=== PATIENT | female | born 1995 | race Caucasian/White ===

== ENCOUNTER 2017-01-09 15:59 | Emergency (ER) | payer OTHER ==
--- NOTE | 2017-01-09 16:15 | PDOC ---
Rapid Medical Evaluation Time Seen by Provider: 01/09/17 16:12 Medical Evaluation: 01/09/17 16:12 Pt presents with complaint of : intermittent spotting x 1 month, no hx of fibroids,endometriosis, - preg 2 week sago, Hx PCOS On brief exam: VSS, I have ordered the following: upreg, ua, cbc, Pt will go to the Emergency Dept for further workup Discharge Disposition - Diagnosis Vaginal bleeding - Referrals - Patient Instructions - Post Discharge Activity
[2017-01-09 16:17] VITALS: BP 125/69; PULSE 66; TEMP 98; BMI 27.4
[2017-01-09 16:31] LABS: BASOPHIL 0.9 % (0-2.0); EOSINOPHIL 1.7 % (0-4.5); MCHC 33.4 g/dl (32.0-36.0); MEAN CELL VOLUME 86.9 fl (80-96); MEAN PLT VOLUME 7.9 fl (7.5-11.1); NEUTROPHILS 59.6 % (42.8-82.8); PLATELET COUNT 316 K/MM3 (134-434); RDW 12.9 % (11.6-15.6)
[2017-01-09 16:38] LABS: URINE APPEARANCE SLCLOUDY; URINE BILIRUBIN NEGATIVE (NEGATIVE); URINE BLOOD 1+ (NEGATIVE); URINE COLOR LTYELLOW; URINE GLUCOSE (UA) NEGATIVE (NEGATIVE); URINE KETONE NEGATIVE (NEGATIVE); URINE NITRITE NEGATIVE (NEGATIVE); URINE PROTEIN NEGATIVE (NEGATIVE); URINE UROBILINOGEN NEGATIVE mg/dL (0.2-1.0)
[2017-01-09 17:12] LABS: URINE MUCUS RARE; URINE RBC 11 /hpf (0-3); URINE WBC 2 /hpf (3-5)
--- NOTE | 2017-01-09 17:48 | PDOC ---
History of Present Illness - General Chief Complaint: Vaginal Bleeding Stated Complaint: VAGINAL BLEEDING Time Seen by Provider: 01/09/17 16:12 - History of Present Illness Initial Comments: 01/09/17 17:39 "The patient is a 21 year old female, with a significant past medical history of polycystic ovarian syndrome and irregular periods, who presents to the emergency department with 1 month of intermittent vaginal bleeding. Patient reports she has been going through 2 pads per day and describes her bleeding as spotting. Denies abdominal pain. Pt denies any dysuria, hematuria, frequency, or urgency. Patient reports she is sexually active with one partner and does not use protection. She denies any nausea, vomiting, diarrhea, or constipation. She denies any fever, cough, headache, or dizziness. The patient reports she was previously on control for PCOS, but stopped it in February due to prescription, and states her periods have been irregular since then. Patient reports she recently [place] from the [facility] 6 [place]. Allergies: NKDA Past Surgical History: None reported Social History: Non smoker. No ETOH or recreational drug use. " Past History - Past Medical History Allergies/Adverse Reactions: Allergies Allergy/AdvReac Type Severity Reaction Status Date / Time No Known Allergies Allergy Verified 01/09/17 16:16 Home Medications: Ambulatory Orders NK [No Known Home Medication] 01/09/17 COPD: No - Reproductive History Is Patient Now?: No - Suicide/Smoking/Psychosocial Hx Smoking History: Never smoked Have you smoked in the past 12 months: Yes Number of Cigarettes Smoked Daily: 3 Information on smoking cessation initiated: No Hx Alcohol Use: No Drug/Substance Use Hx: No Substance Use Type: None Review of Systems - Review of Systems Comments:: 01/09/17 17:48 "GENERAL/CONSTITUTIONAL: No fever or chills. No weakness. HEAD, EYES, EARS, NOSE AND THROAT: No change in vision. No ear pain or discharge. No sore throat. CARDIOVASCULAR: No chest pain or shortness of breath. RESPIRATORY: No cough, wheezing, or hemoptysis. GASTROINTESTINAL: No nausea, vomiting, diarrhea or constipation. GENITOURINARY: +vaginal spotting, No dysuria, frequency, or change in urination. MUSCULOSKELETAL: No joint or muscle swelling or pain. No neck or back pain. SKIN: No rash NEUROLOGIC: No headache, vertigo, loss of consciousness, or change in strength/ sensation. ENDOCRINE: No increased thirst. No abnormal weight change. HEMATOLOGIC/LYMPHATIC: No anemia, easy bleeding, or history of blood clots. ALLERGIC/IMMUNOLOGIC: No hives or skin allergy. " *Physical Exam - Vital Signs Last Vital Signs Temp Pulse Resp BP Pulse Ox 98.0 F 66 18 125/69 100 01/09/17 16:13 01/09/17 16:13 01/09/17 16:13 01/09/17 16:13 01/09/17 16:13 - Physical Exam Comments: 01/09/17 17:49 "GENERAL: Awake, alert, and fully oriented, in no acute distress HEAD: No signs of trauma EYES: PERRLA, EOMI, sclera anicteric, conjunctiva clear ENT: Auricles normal inspection, hearing grossly normal, nares patent, oropharynx clear without exudates. Moist mucosa NECK: Nontender, no stepoffs, Normal ROM, supple, no lymphadenopathy, JVD, or masses LUNGS: Breath sounds equal, clear to auscultation bilaterally. No wheezes, and no crackles HEART: Regular rate and rhythm, normal S1 and S2, no murmurs, rubs or gallops ABDOMEN: Soft, nontender, normoactive bowel sounds. No guarding, no rebound. No masses : scant blood in vaginal vault, no CMT, no abnormal discharge, os closed EXTREMITIES: Normal range of motion, no edema. No clubbing or cyanosis. No cords, erythema, or tenderness NEUROLOGICAL: Cranial nerves II through XII intact. 5/5 strength and sensation in all extremities, Normal speech, normal gait SKIN: Warm, Dry, normal turgor, no rashes or lesions noted. " ED Treatment Course - LABORATORY CBC & Chemistry Diagram: 01/09/17 16:16 - ADDITIONAL ORDERS Additional order review: Laboratory Results 01/09/17 16:16 Urine Color Ltyellow Urine Appearance Slcloudy Urine pH 6.0 Ur Specific [place] 1.019 Urine Protein Negative Urine Glucose (UA) Negative Urine Ketones Negative Urine Blood 1+ H Urine Nitrite Negative Urine Bilirubin Negative Urine Urobilinogen Negative Urine WBC (Auto) 2 Urine RBC (Auto) 11 Ur Epithelial Cells Rare Urine Mucus Rare Urine HCG, Qual Negative 01/09/17 16:16 RBC 4.94 MCV 86.9 MCHC 33.4 RDW 12.9 MPV 7.9 Neutrophils % 59.6 Lymphocytes % 31.8 Monocytes % 6.0 Eosinophils % 1.7 Basophils % 0.9 Medical Decision Making - Medical Decision Making 01/09/17 17:49 21 F with vaginal spotting x 1 month. Likely PCOS-related. Pt with no signs or symptoms of anemia on exam. Vitals normal. Pt with negative UPT today. Will check basic labs. - CBC - UA - F/u motel front desk clerk 01/09/17 17:50 UA negative. CBC wnl, no signs of anemia. *DC/Admit/Observation/Transfer Diagnosis at time of Disposition: Vaginal bleeding - Discharge Dispostion Disposition: HOME - Referrals Referrals: Luis Hall MD [Staff Physician] - Sriram Ramos MD [Staff Physician] - - Patient Instructions Printed Discharge Instructions: DI for Menorrhagia Additional Instructions: Please call the numbers provided to make a appointments with our motel front desk clerk and internal medicine clinics. You may need to be started on oral contraceptives again to control your vaginal bleeding. If you experience worsening bleeding, abdominal pain, lightheadedness, or any other concerning symptoms, return to the ER immediately. - Post Discharge Activity Forms/Work/School Notes: Back to Work - Attestations Physician Attestion: 01/09/17 17:53 I, Dr. Christopher Eddy MD, attest that this document has been prepared under my direction and personally reviewed by me in its entirety. I further attest, that it accurately reflects all work, treatment, procedures and medical decision -making performed by me.
[2017-01-09 19:44] LABS: URINE LEUK ESTERASE TRACE (NEGATIVE)
== END 2017-01-09 19:12 | disposition home or self-care (01) ==
LOC: JER 15:59
DX: N92.0 Excessive and frequent menstruation with regular cycle (principal); N93.8 Other specified abnormal uterine and vaginal bleeding; E28.2 Polycystic ovarian syndrome
CPT/HCPCS: 36415; 81003; 81015; 84703; 85025; 99282-25